=== PATIENT | male | born 1995 | race Caucasian/White ===

== ENCOUNTER 2018-06-12 13:54 | Outpatient (CLI) | payer OTHER ==
[~2018-06-12] VITALS: Ht 165.1 cm; Wt 71.1 kg
[2018-06-12 14:43] VITALS: BP 120/67; PULSE 72; TEMP 98.5
[2018-06-12] MEDS ORDERED: AMITRIPTYLINE H25 M1 PO (14:57)
[2018-06-12] MEDS ORDERED: FOLIC ACID 11 MG/TA1 PO (14:58)
[2018-06-12] MEDS ORDERED: FISH OIL 1000MG1 CAP PO (14:58)
[2018-06-12] MEDS ORDERED: KEPPRA 500MG500 MG PO (14:59)
[2018-06-12] MEDS ORDERED: SLOW-MAG 6464 MG/TAB PO (15:09)
[2018-06-12] MEDS ORDERED: B-121000 MCG PO (15:10)
[2018-06-12] MEDS ORDERED: VITAMIN D31000 I1 PO (15:10)
--- NOTE | 2018-06-12 17:46 | NUR ---
Pt returned from procedure.Report from Susu Garrett.
[2018-06-12 17:47] VITALS: BP 137/90; PULSE 65
--- NOTE | 2018-06-12 17:47 | NUR ---
Discharge instructions given to pt.Pt verbalizes understanding.INT removed,catheter tip intact.
--- NOTE | 2018-06-12 17:50 | NUR ---
Pt discharged at this time.
== END 2018-06-12 17:51 | disposition home or self-care (01) ==
LOC: COL.CAR 13:54
DX: R55 Syncope and collapse (principal); F17.220 Nicotine dependence, chewing tobacco, uncomplicated; Z85.3 Personal history of malignant neoplasm of breast; Z82.49 Family history of ischemic heart disease and other diseases of the circulatory system